=== PATIENT | male | born 1930 | race Caucasian/White ===

== ENCOUNTER → 2017-11-06 | Outpatient (CLI) | payer OTHER | LOC: BHFA 10:30 | PROVIDERS: ATTEND Internal Medicine Cardiovascular Disease | DX: R00.2 Palpitations (principal) ==

== ENCOUNTER → 2017-11-09 | Outpatient (CLI) | payer OTHER, MEDICARE ==
[~2017-11-09] MED LIST: REGADENOSON 0.4 MG/5 ML SYR IVP ONE
--- NOTE | 2017-11-09 15:47 | CPR ---
[f rep st] NONINVASIVE CARDIAC PROCEDURE REPORT DATE OF PROCEDURE: 11/09/2017 PROCEDURE: Lexiscan nuclear stress test. INDICATION: The patient is an 87-year-old male who presents today for a nuclear stress test prior to undergoing shoulder surgery. He denies any history of hypertension, hyperlipidemia, diabetes, or fa deepa history of premature coronary artery disease. He does have a history of tobacco use, but quit 1 5-20 years ago. PROCEDURE IN DETAIL: Consent was obtained and the patient was placed on continuous telemetry. His r esting EKG reveals sinus bradycardia at a heart rate of 53 with a first-degree AV block. His VA inte rval measured at [address] are no [address]-T wave changes to suggest ischemia. The patient was infused with Lexiscan and denied any symptoms associated with the infusion. He remained in brisa l sinus rhythm with PACs throughout the study. There were no EKG changes with the infusion. His blo od pressure at rest was 112/70, remained stable throughout the study. PLAN: Await nuclear images. /[id number]
== END ==
LOC: FIMAGING 10:38
PROVIDERS: ATTEND Nurse Practitioner Family
DX: R00.2 Palpitations (principal); I49.3 Ventricular premature depolarization; I49.1 Atrial premature depolarization; R94.31 Abnormal electrocardiogram [ECG] [EKG]
CPT/HCPCS: 78452; 93017; A9500; J2785